=== PATIENT | female | born 1990 | race Caucasian/White ===

== ENCOUNTER 2017-01-27 11:36 | Emergency (ER) | payer SELFPAY ==
[~2017-01-27] VITALS: Ht 160 cm; Wt 59.0 kg
[~2017-01-27 11:36] MED LIST: ACYCLOVIR400 MG PO; AMOXIL250 MG PO; AMOXIL500 MG PO; ANAPROX275 MG PO; BACTRIM DS 8001 TAB PO; BENTYL10 M1 PO; CIPRO 250MG TA250 MG PO; CIPRO 500MG TA500 MG PO; CIPRO500 MG PO; CLINDAMYCIN300 MG PO; DIFLUCAN150 MG PO; FLAGYL500 MG PO; HYDROCODONE1 TABLET PO; KEFLEX 500MG.500 MG PO; KEFLEX500 M1 PO; LORTAB 5/3251 TAB PO; LORTAB 5/500 501 TAB PO; MAGMTHWSH PO; MEDROL 4MG. DOSE4 MG PO; MULTIVITAMIN1 TA1 PO; NAPROSYN 500MG500 MG PO; NEXPLANON68 MG ID; NOMEDS; NOMEDS XX; PAXIL40 MG PO; PHENERGAN 25MG.25 M1 PO; POTASSIUM CHLO20 ME2 PO; PRENATAL PLUS1 TA1 PO; PYRIDIUM 200MG200 MG PO; SEPTRA DS 800 M1 TAB PO; SODIUM SULAMYD OP; SULFAMETHOXAZOL1 TA6 PO; TYLENOL W/CODEI1 TA2 PO; VICODIN 5/500 T1 TAB PO; VOLTAREN75 MG PO; ZANTAC 150150 MG PO; ZITHROMAX Z PA250 MG PO; ZOFRAN ODT4 MG PO; ZOVIRAX 5% OIN1 INCH EX; ZOVIRAX400 M1 PO
[2017-01-27 12:16] LABS: URINE BILIRUBIN - DIPSTICK NEGATIVE (NEG); URINE BLOOD TRACE-LYSED (NEG)
[2017-01-27 12:41] LABS: URINE SQUAMOUS CELLS 20-50 #/hpf (0-5)
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
[2017-01-27 13:20] LABS: LYMPH % 30.1 % (10-50.0)
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
[2017-01-27] MEDS ORDERED: ROBAXIN-750750 MG PO (15:10)
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
[2017-01-27 15:35] LABS: AMPHETAMINES/METAMPHETAMINES NEGATIVE ng/mL (<1000)
[2017-01-27 15:59] VITALS: BP 112/66
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
== END 2017-01-27 15:59 | disposition home or self-care (01) ==
LOC: ER 11:36
PROVIDERS: Emergency Medicine
DX: S13.4XXA Sprain of ligaments of cervical spine, initial encounter (principal); S16.1XXA Strain of muscle, fascia and tendon at neck level, initial encounter; V43.62XA Car passenger injured in collision with other type car in traffic accident, initial encounter; Y92.414 Local residential or business street as the place of occurrence of the external cause; S33.8XXA Sprain of other parts of lumbar spine and pelvis, initial encounter; S30.1XXA Contusion of abdominal wall, initial encounter; N93.8 Other specified abnormal uterine and vaginal bleeding